=== PATIENT | male | born 1985 | race American Indian/Alaskan Native ===

== ENCOUNTER 2021-03-09 15:27 | Emergency (ER) | payer SELFPAY ==
[2021-03-09 16:50] VITALS: BP 125/80
--- NOTE | 2021-03-09 16:54 | Emergency Department Report ---
ED ENT HPI - General Chief complaint: Dental/Oral Stated complaint: BROKEN TOOTH Time Seen by Provider: 03/09/21 16:14 Source: patient Mode of arrival: Ambulatory Limitations: No Limitations - History of Present Illness Initial comments: Patient is a 35-year-old male presents emergency room with complaints of left upper facial swelling that began 2 days ago. He states he began having dental pain 2 days ago. He states he cracked a tooth in this region approximately 1 year ago. He has not seen a dentist in a couple years. He denies any fever, vomiting, diarrhea, difficulty swallowing, difficulty breathing. No past medical history. No allergies to medications. - Related Data Previous Rx's Medication Instructions Recorded Last Taken Type Chlorhexidine Mouthwash [Peridex] 15 ml MM BID #1 bottle 03/09/21 Unknown Rx Naproxen 375 mg PO BID PRN #20 tablet 03/09/21 Unknown Rx Penicillin Vk [Veetids TAB] 500 mg PO QID 7 Days #56 tablet 03/09/21 Unknown Rx Allergies Allergy/AdvReac Type Severity Reaction Status Date / Time No Known Allergies Allergy Unverified 03/09/21 16:12 ED Dental HPI - General Chief complaint: Dental/Oral Stated complaint: BROKEN TOOTH Time Seen by Provider: 03/09/21 16:14 Source: patient Mode of arrival: Ambulatory Limitations: No Limitations - Related Data Previous Rx's Medication Instructions Recorded Last Taken Type Chlorhexidine Mouthwash [Peridex] 15 ml MM BID #1 bottle 03/09/21 Unknown Rx Naproxen 375 mg PO BID PRN #20 tablet 03/09/21 Unknown Rx Penicillin Vk [Veetids TAB] 500 mg PO QID 7 Days #56 tablet 03/09/21 Unknown Rx Allergies Allergy/AdvReac Type Severity Reaction Status Date / Time No Known Allergies Allergy Unverified 03/09/21 16:12 ED Review of Systems ROS: Stated complaint: BROKEN TOOTH Other details as noted in HPI Comment: All other systems reviewed and negative ED Past Medical Hx - Past Medical History Previous Medical History?: No - Surgical History Past Surgical History?: No - Medications Home Medications: Home Medications Medication Instructions Recorded Confirmed Last Taken Type Chlorhexidine Mouthwash [Peridex] 15 ml MM BID #1 bottle 03/09/21 Unknown Rx Naproxen 375 mg PO BID PRN #20 tablet 03/09/21 Unknown Rx Penicillin Vk [Veetids TAB] 500 mg PO QID 7 Days #56 tablet 03/09/21 Unknown Rx ED Physical Exam - General Limitations: No Limitations General appearance: alert, in no apparent distress - Head Head exam: Present: atraumatic, normocephalic - Eye Eye exam: Present: normal appearance - ENT ENT exam: Present: mucous membranes moist, other (very poor dentition, several cracked missing teeth, there is a tooth that has eroded into the gumline to the left upper pre molar, there is mild edema to the left upper gumline and left face, uvula is midline, no uvular edema or deviation, no trismus, no tongue elevation, no muffled voice) - Respiratory Respiratory exam: Absent: respiratory distress, accessory muscle use - Neurological Exam Neurological exam: Present: alert, oriented X3 - Psychiatric Psychiatric exam: Present: normal affect, normal mood - Skin Skin exam: Present: warm, dry, intact ED Course Vital Signs 03/09/21 16:12 Temperature 98.6 F Pulse Rate 73 Respiratory 18 Rate Blood Pressure 125/80 O2 Sat by Pulse 99 Oximetry ED Medical Decision Making - Medical Decision Making Patient is a 35-year-old male presents emergency room with complaints of left upper facial swelling that began 2 days ago. He states he began having dental pain 2 days ago. He states he cracked a tooth in this region approximately 1 year ago. He has not seen a dentist in a couple years. He denies any fever, vomiting, diarrhea, difficulty swallowing, difficulty breathing. No past medical history. No allergies to medications. Vitals are normal. On exam:very poor dentition, several cracked missing teeth, there is a tooth that has eroded into the gumline to the left upper pre molar, there is mild edema to the left upper gumline and left face, uvula is midline, no uvular edema or deviation, no trismus, no tongue elevation, no muffled voice. Examination consistent with ear ly dental abscess. No facial cellulitis, facial abscess, or Ludwigs at this time. Patient given prescription for medication. Advised patient Please take medication as prescribed. Follow-up with a dentist. Return to emergency room for any new or worsening symptoms. Critical care attestation.: If time is entered above; I have spent that time in minutes in the direct care of this critically ill patient, excluding procedure time. ED Disposition Clinical Impression: Dentalgia, Dental caries, Dental abscess Disposition: 01 HOME / SELF CARE / HOMELESS Is pt being admited?: No Does the pt Need Aspirin: No Condition: Stable Instructions: Dental Abscess Additional Instructions: Please take medication as prescribed. Follow-up with a dentist. Return to emergency room for any new or worsening symptoms. Prescriptions: Naproxen 375 mg PO BID PRN #20 tablet PRN Reason: pain Chlorhexidine Mouthwash [Peridex] 15 ml MM BID #1 bottle Penicillin Vk [Veetids TAB] 500 mg PO QID 7 Days #56 tablet Referrals: [facility] [Outside] - 2-3 Days [facility] [Outside] - 2-3 Days Forms: Work/School Release Form(ED) Time of Disposition: 16:53 Print Language: FRENCH
== END 2021-03-09 17:08 | disposition home or self-care (01) ==
LOC: ED 15:27
DX: K04.7 Periapical abscess without sinus (principal); K02.9 Dental caries, unspecified; Z79.899 Other long term (current) drug therapy
CPT/HCPCS: 99282

== ENCOUNTER 2021-09-12 14:27 | Emergency (ER) | payer SELFPAY ==
[2021-09-12] MEDS ORDERED: IBUPROFEN 800 MG TAB PO ONE (20:25)
[2021-09-12] MEDS ORDERED: AMOXICILLIN/K CLAV 875/125MG TAB PO ONE (20:25)
--- NOTE | 2021-09-12 20:30 | Emergency Department Report ---
ED General Adult HPI - General Chief complaint: Dental/Oral Stated complaint: BROKEN ABCESS TOOTH Time Seen by Provider: 09/12/21 20:22 Source: patient Mode of arrival: Ambulatory Limitations: No Limitations - History of Present Illness Initial comments: Patient 35-year-old male who presents for dental pain right upper x3 days. Patient rates pain at 7/10. Pain is improved however with ibuprofen [id number]. There is no facial swelling no gum swelling no focal abscess. No ear or throat pain. Patient is tolerating p.o. intake. Patient has dentist appointment in 1 week. Severity scale (0 -10): 5 - Related Data Previous Rx's Medication Instructions Recorded Last Taken Type Chlorhexidine Mouthwash [Peridex] 15 ml MM BID #1 bottle 03/09/21 Unknown Rx Naproxen 375 mg PO BID PRN #20 tablet 03/09/21 Unknown Rx Penicillin Vk [Veetids TAB] 500 mg PO QID 7 Days #56 tablet 03/09/21 Unknown Rx Amoxicillin/K Clav Tab [Augmentin 1 tab PO BID 7 Days #14 tab 09/12/21 Unknown Rx 875 mg] Chlorhexidine Mouthwash [Peridex] 15 ml MM BID #1 bottle 09/12/21 Unknown Rx Ibuprofen [Motrin 800 MG tab] 800 mg PO Q8HR PRN #30 tablet 09/12/21 Unknown Rx Allergies Allergy/AdvReac Type Severity Reaction Status Date / Time No Known Allergies Allergy Unverified 03/09/21 16:12 ED Review of Systems ROS: Stated complaint: BROKEN ABCESS TOOTH Other details as noted in HPI Constitutional: denies: chills, fever Eyes: denies: eye pain, eye discharge, vision change ENT: dental pain. denies: ear pain, throat pain Respiratory: denies: cough, shortness of breath, wheezing Cardiovascular: denies: chest pain, palpitations Endocrine: no symptoms reported Gastrointestinal: denies: abdominal pain, nausea, diarrhea Genitourinary: denies: urgency, dysuria Musculoskeletal: denies: back pain, joint swelling, arthralgia Skin: denies: rash, lesions Neurological: denies: headache, weakness, paresthesias Psychiatric: denies: anxiety, depression Hematological/Lymphatic: denies: easy bleeding, easy bruising ED Past Medical Hx - Past Medical History Previous Medical History?: No - Surgical History Past Surgical History?: No - Social History Smoking Status: Never Smoker Substance Use Type: Marijuana - Medications Home Medications: Home Medications Medication Instructions Recorded Confirmed Last Taken Type Chlorhexidine Mouthwash [Peridex] 15 ml MM BID #1 bottle 03/09/21 Unknown Rx Naproxen 375 mg PO BID PRN #20 tablet 03/09/21 Unknown Rx Penicillin Vk [Veetids TAB] 500 mg PO QID 7 Days #56 tablet 03/09/21 Unknown Rx Amoxicillin/K Clav Tab [Augmentin 1 tab PO BID 7 Days #14 tab 09/12/21 Unknown Rx 875 mg] Chlorhexidine Mouthwash [Peridex] 15 ml MM BID #1 bottle 09/12/21 Unknown Rx Ibuprofen [Motrin 800 MG tab] 800 mg PO Q8HR PRN #30 tablet 09/12/21 Unknown Rx ED Physical Exam - General Limitations: No Limitations General appearance: alert, in no apparent distress - Head Head exam: Present: atraumatic, normocephalic - Eye Eye exam: Present: PERRL, EOMI Pupils: Present: normal accommodation - ENT ENT exam: Present: mucous membranes moist, TM's normal bilaterally, normal external ear exam - Expanded ENT Exam Expanded Mouth exam: Absent: trismus Teeth exam: Present: dental tenderness # (3) Throat exam: Positive: other (no exudate no lesion no stridor no wheezing ). Negative: tonsillar erythema, tonsillomegaly, tonsillar exudate, R peritonsillar mass, L peritonsillar mass - Neck Neck exam: Present: normal inspection, full ROM. Absent: tenderness, meningismus, lymphadenopathy, thyromegaly - Expanded Neck Exam Expanded Neck exam: Absent: tenderness, midline deformity, anterior neck swelling - Respiratory Respiratory exam: Present: normal lung sounds bilaterally. Absent: respiratory distress, wheezes, stridor - Cardiovascular Cardiovascular Exam: Present: regular rate, normal rhythm, normal heart sounds. Absent: systolic murmur, diastolic murmur, rubs, gallop - GI/Abdominal GI/Abdominal exam: Present: soft, normal bowel sounds. Absent: distended, tenderness - Rectal Rectal exam: Present: deferred - Extremities Exam Extremities exam: Present: normal inspection, full ROM. Absent: tenderness - Back Exam Back exam: Present: normal inspection, full ROM. Absent: tenderness - Neurological Exam Neurological exam: Present: alert, oriented X3, CN II-XII intact - Expanded Neurological Exam Expanded Patient oriented to: Present: person, place, time Speech: Present: fluid speech Best Eye Response (Hudson): (4) open spontaneously Best Motor Response (Kirstie): (6) obeys commands Best Verbal Response ([place]): (5) oriented [place] Total: 15 - Psychiatric Psychiatric exam: Present: normal affect, normal mood - Skin Skin exam: Present: warm, dry, intact, normal color. Absent: rash ED Course Vital Signs 09/12/21 16:38 Temperature 96.6 F L Pulse Rate 58 L Respiratory 18 Rate Blood Pressure 125/84 [Left] O2 Sat by Pulse 99 Oximetry ED Medical Decision Making - Medical Decision Making Is infected dental caries with no abdominal facial swelling airway is patent patient tolerating p.o. intake. Plan DC to home with prescription. Follow-up with dentist as scheduled. Return to emergency department symptoms worsen. Critical care attestation.: If time is entered above; I have spent that time in minutes in the direct care of this critically ill patient, excluding procedure time. ED Disposition Clinical Impression: Infected dental caries Disposition: HOME / SELF CARE / HOMELESS Is pt being admited?: No Does the pt Need Aspirin: No Condition: Stable Instructions: Dental Extraction, Care After, [id number], Preventive Dental Care, Adult Additional Instructions: Take medications as prescribed, follow-up with your dentist as scheduled. Return to emergency department should symptoms worsen. Prescriptions: Amoxicillin/K Clav Tab [Augmentin 875 mg] 1 tab PO BID 7 Days #14 tab Ibuprofen [Motrin 800 MG tab] 800 mg PO Q8HR PRN #30 tablet PRN Reason: Pain Chlorhexidine Mouthwash [Peridex] 15 ml MM BID #1 bottle Referrals: [facility] [Outside] - 3-5 Days Forms: Work/School Release Form(ED) Time of Disposition: 20:34
[2021-09-12 20:48] VITALS: BP 122/80
== END 2021-09-12 20:48 | disposition home or self-care (01) ==
LOC: ED 14:27
DX: K02.9 Dental caries, unspecified (principal); F12.90 Cannabis use, unspecified, uncomplicated
CPT/HCPCS: 99282

== ENCOUNTER 2021-11-17 16:04 | Emergency (ER) | payer SELFPAY ==
[2021-11-17 16:39] VITALS: BP 135/87
--- NOTE | 2021-11-17 21:09 | Emergency Department Report ---
ED ENT HPI - General Chief complaint: Dental/Oral Stated complaint: ABSCESS Time Seen by Provider: 11/17/21 20:47 Source: patient Mode of arrival: Ambulatory Limitations: No Limitations - History of Present Illness MD complaint: tooth pain -: Gradual Location: tooth # Severity: mild, moderate Quality: aching, dull Consistency: constant Improves with: none Worsens with: none Context- Dental: history of dental caries Associated Symptoms: toothache. denies: pain with swallowing, sore throat - Related Data Previous Rx's Medication Instructions Recorded Last Taken Type Chlorhexidine Mouthwash [Peridex] 15 ml MM BID #1 bottle 03/09/21 Unknown Rx Naproxen 375 mg PO BID PRN #20 tablet 03/09/21 Unknown Rx Penicillin Vk [Veetids TAB] 500 mg PO QID 7 Days #56 tablet 03/09/21 Unknown Rx Amoxicillin/K Clav Tab [Augmentin 1 tab PO BID 7 Days #14 tab 09/12/21 Unknown Rx 875 mg] Chlorhexidine Mouthwash [Peridex] 15 ml MM BID #1 bottle 09/12/21 Unknown Rx Ibuprofen [Motrin 800 MG tab] 800 mg PO Q8HR PRN #30 tablet 09/12/21 Unknown Rx Amoxicillin [Amoxicillin TAB] 875 mg PO BID #20 tablet 11/17/21 Unknown Rx Chlorhexidine Mouthwash [Peridex] 15 ml MM BID #1 bottle 11/17/21 Unknown Rx Ketorolac [Toradol] 10 mg PO Q6H PRN #15 tablet 11/17/21 Unknown Rx Allergies Allergy/AdvReac Type Severity Reaction Status Date / Time No Known Allergies Allergy Unverified 03/09/21 16:12 ED Dental HPI - General Chief complaint: Dental/Oral Stated complaint: ABSCESS Time Seen by Provider: 11/17/21 20:47 Source: patient Mode of arrival: Ambulatory Limitations: No Limitations - Related Data Previous Rx's Medication Instructions Recorded Last Taken Type Chlorhexidine Mouthwash [Peridex] 15 ml MM BID #1 bottle 03/09/21 Unknown Rx Naproxen 375 mg PO BID PRN #20 tablet 03/09/21 Unknown Rx Penicillin Vk [Veetids TAB] 500 mg PO QID 7 Days #56 tablet 03/09/21 Unknown Rx Amoxicillin/K Clav Tab [Augmentin 1 tab PO BID 7 Days #14 tab 09/12/21 Unknown Rx 875 mg] Chlorhexidine Mouthwash [Peridex] 15 ml MM BID #1 bottle 09/12/21 Unknown Rx Ibuprofen [Motrin 800 MG tab] 800 mg PO Q8HR PRN #30 tablet 09/12/21 Unknown Rx Amoxicillin [Amoxicillin TAB] 875 mg PO BID #20 tablet 11/17/21 Unknown Rx Chlorhexidine Mouthwash [Peridex] 15 ml MM BID #1 bottle 11/17/21 Unknown Rx Ketorolac [Toradol] 10 mg PO Q6H PRN #15 tablet 11/17/21 Unknown Rx Allergies Allergy/AdvReac Type Severity Reaction Status Date / Time No Known Allergies Allergy Unverified 03/09/21 16:12 ED Review of Systems ROS: Stated complaint: ABSCESS Other details as noted in HPI Comment: All other systems reviewed and negative ED Past Medical Hx - Past Medical History Previous Medical History?: No - Surgical History Past Surgical History?: No - Social History Smoking Status: Never Smoker Substance Use Type: Marijuana - Medications Home Medications: Home Medications Medication Instructions Recorded Confirmed Last Taken Type Chlorhexidine Mouthwash [Peridex] 15 ml MM BID #1 bottle 03/09/21 Unknown Rx Naproxen 375 mg PO BID PRN #20 tablet 03/09/21 Unknown Rx Penicillin Vk [Veetids TAB] 500 mg PO QID 7 Days #56 tablet 03/09/21 Unknown Rx Amoxicillin/K Clav Tab [Augmentin 1 tab PO BID 7 Days #14 tab 09/12/21 Unknown Rx 875 mg] Chlorhexidine Mouthwash [Peridex] 15 ml MM BID #1 bottle 09/12/21 Unknown Rx Ibuprofen [Motrin 800 MG tab] 800 mg PO Q8HR PRN #30 tablet 09/12/21 Unknown Rx Amoxicillin [Amoxicillin TAB] 875 mg PO BID #20 tablet 11/17/21 Unknown Rx Chlorhexidine Mouthwash [Peridex] 15 ml MM BID #1 bottle 11/17/21 Unknown Rx Ketorolac [Toradol] 10 mg PO Q6H PRN #15 tablet 11/17/21 Unknown Rx ED Physical Exam - General Limitations: No Limitations General appearance: alert, in no apparent distress - Head Head exam: Present: atraumatic, normocephalic - Eye Eye exam: Present: normal appearance, PERRL, EOMI Pupils: Present: normal accommodation - ENT ENT exam: Present: normal exam, normal orophraynx, mucous membranes moist, TM's normal bilaterally, other (Diffuse dental caries with significant erosion bilaterally with some gingival erythema. Tongue and uvula midline airway patent) - Neck Neck exam: Present: normal inspection, full ROM - Respiratory Respiratory exam: Present: normal lung sounds bilaterally. Absent: respiratory distress - Cardiovascular Cardiovascular Exam: Present: regular rate, normal rhythm. Absent: systolic murmur, diastolic murmur, rubs, gallop - GI/Abdominal GI/Abdominal exam: Present: soft, normal bowel sounds - Rectal Rectal exam: Present: deferred - Extremities Exam Extremities exam: Present: normal inspection - Back Exam Back exam: Present: normal inspection - Neurological Exam Neurological exam: Present: alert, oriented X3 - Psychiatric Psychiatric exam: Present: normal affect, normal mood - Skin Skin exam: Present: warm, dry, intact, normal color. Absent: rash ED Course Vital Signs 11/17/21 16:35 Temperature 98.3 F Pulse Rate 80 Respiratory 16 Rate Blood Pressure 135/87 O2 Sat by Pulse 99 Oximetry Critical care attestation.: If time is entered above; I have spent that time in minutes in the direct care of this critically ill patient, excluding procedure time. ED Disposition Clinical Impression: Dentalgia, Infected dental caries Disposition: HOME / SELF CARE / HOMELESS Is pt being admited?: No Does the pt Need Aspirin: No Condition: Stable Instructions: Dental Abscess, Acute Pain, Adult, Dental Sealants, Dental Extraction, Care After, [id number] Prescriptions: Amoxicillin [Amoxicillin TAB] 875 mg PO BID #20 tablet Chlorhexidine Mouthwash [Peridex] 15 ml MM BID #1 bottle Ketorolac [Toradol] 10 mg PO Q6H PRN #15 tablet PRN Reason: Pain Referrals: [facility] [Outside] - 3-5 Days
== END 2021-11-17 22:21 | disposition home or self-care (01) ==
LOC: ED 16:04
DX: K02.9 Dental caries, unspecified (principal); K08.89 Other specified disorders of teeth and supporting structures
CPT/HCPCS: 99282